=== PATIENT | female | born 1995 | race Caucasian/White ===

== ENCOUNTER → 2018-09-04 | Outpatient (CLI) | payer BC ==
--- NOTE | 2018-09-07 22:00 | MR ---
EXAMINATION TYPE: MR abdomen wo/w con DATE OF EXAM: 09/04/2018 COMPARISON: Outside CT 08/04/2018 HISTORY: 23-year-old female RUQ pain Technique: Multiplanar, multisequence images of the abdomen were obtained before and after administra tion of 6 mL intravenous Gadavist gadolinium contrast. FINDINGS: The heart is normal size without pericardial effusion. There is no pleural effusion. Liver is mildly enlarged at 18.0 cm. Opposed phase T1-weighted images show no evidence for hepatic st eatosis. Within the right liver lobe, there is a round 1.4 cm lesion that shows bright T2 and dark T1 signal. This shows small areas of internal nodular enhancement with enhancement that gradually enlarges on la ter phases of postcontrast sequences. Incomplete filling is demonstrated. No additional focal liver l esion seen. Portal venous system is patent. No biliary ductal dilatation. Gallbladder, adrenal glands, kidneys, spleen, and pancreas appear within normal limits. No upper abdominal lymphadenopathy, ascites fluid, or gross bowel abnormality. Moderate stool burden is demonstrated. IMPRESSION: 1. 1.4 cm right liver lobe lesion shows internal nodular enhancement. The enhancement enlarges on lat er phases of imaging but fill in is incomplete. A partially sclerosed hemangioma is suggested. As the finding is well seen on the outside 05/24/2018 ultrasound, precautionary 6-12 month follow-up ultrasou nd can be performed to demonstrate stability. 2. Otherwise, no specific abnormality of the abdomen is identified.
== END | disposition home or self-care (01) ==
LOC: RADMRIMAIN 08:38
PROVIDERS: ATTEND Physician Assistant
DX: K76.89 Other specified diseases of liver (principal)
CPT/HCPCS: 74183; A9585

== ENCOUNTER 2018-10-23 06:52 | Day surgery (SDC) | payer BC ==
[2018-10-20 15:51] VITALS: BMI 22.8
[~2018-10-23 06:52] MED LIST: DEXAMETHASONE SOD PHOSPHATE 10 MG/ML 1 ML VIAL IV ONE; HEPARIN SODIUM,PORCINE 5,000 UNIT/ML 1 ML VIAL SQ ONE; HYDROmorphone 0.5 MG/0.5 ML SYRINGE IVP PRN; LIDOCAINE 1% 20 ML VIAL (10MG/ML) FOR IV START INTRADERMA PRN; MIDAZOLAM 2 MG/2 ML VIAL IV PRN; ONDANSETRON 4 MG/2 ML VIAL IVP ONE; SCOPOLAMINE 1.5MG/72HR PATCH TRANSDERM ONE
[2018-10-23] MEDS: LACTATED RINGERS 1,000 ML IV SCH ×2 (07:27→08:02)
[2018-10-23] MEDS ORDERED: SUCCINYLCHOLINE CHLORIDE 100 MG/5 ML SYR IV ONE (07:58)
[2018-10-23] MEDS ORDERED: diphenhydrAMINE 50 MG/ML 1 ML VIAL ONE (07:58)
[2018-10-23] MEDS ORDERED: NEOSTIGMINE 1 MG/ML 10 ML VIAL ONE (07:58)
[2018-10-23] MEDS ORDERED: PROPOFOL 10 MG/ML 20 ML VIAL IV ONE (07:58)
[2018-10-23] MEDS ORDERED: fentaNYL (PF) 50 MCG/ML 2 ML AMP ONE (07:58)
[2018-10-23] MEDS ORDERED: GLYCOPYRROLATE 0.2 MG/ML 2 ML VIAL ONE (07:58)
[2018-10-23] MEDS ORDERED: LIDOCAINE 1% INJ 10MG/ML (20 ML MDV) ONE (07:58)
[2018-10-23] MEDS ORDERED: MIDAZOLAM 2 MG/2 ML VIAL ONE (07:58)
[2018-10-23] MEDS ORDERED: LACTATED RINGERS 1,000 ML IV ONE (08:16)
[2018-10-23] MEDS: ceFAZolin IN SWFI 2 GM/20 ML SYRINGE IVP ONE ×2 (08:16→08:21)
[2018-10-23] MEDS ORDERED: BUPIVACAIN-EPI 0.25%-1:200,000 30 ML VIAL IJ ONE ×2 (08:24)
[2018-10-23 09:00] VITALS: TEMP 97.9
--- NOTE | 2018-10-23 09:00 | P.GSHP ---
History of Present Illness H&P Date: 10/23/18 Chief Complaint: Right upper quadrant pain This is a 23-year-old female with complaints of right quadrant pain. Her recent HIDA scan is consistent with biliary dyskinesia and chronic cholecystitis. She presents today for laparoscopic cholecystectomy. Past Medical History Past Medical History: GERD/Reflux Additional Past Medical History / Comment(s): occasional constipation, blood in stool & abd pain. History of Any Multi-Drug Resistant Organisms: None Reported Past Surgical History: No Surgical Hx Reported Additional Past Anesthesia/Blood Transfusion Reaction / Comment(s): NO ANESTHESIA HX Past Psychological History: Anxiety Smoking Status: Never smoker Past Alcohol Use History: Rare Past Drug Use History: None Reported - Past Family History Mother Family Medical History: No Reported History Medications and Allergies Home Medications Medication Instructions Recorded Confirmed Type No Known Home Medications 10/30/15 10/23/18 History Allergies Allergy/AdvReac Type Severity Reaction Status Date / Time No Known Allergies Allergy Verified 10/23/18 07:10 Surgical - Exam Vital Signs Temp Pulse Resp BP Pulse Ox 99.1 F 87 16 118/72 99 10/23/18 07:16 10/23/18 07:16 10/23/18 07:16 10/23/18 07:16 10/23/18 07:16 - General well developed, well nourished, no distress - Eyes PERRL - ENT normal pinna - Neck no masses - Respiratory normal expansion - Cardiovascular Rhythm: regular - Abdomen Abdomen: soft, non tender Assessment and Plan Assessment: Chronic cholecystitis Biliary dyskinesia. We'll perform laparoscopic cholecystectomy
--- NOTE | 2018-10-23 09:23 | P.OP ---
Date of Procedure: 10/23/18 Preoperative Diagnosis: Cholecystitis Postoperative Diagnosis: Cholecystitis Procedure(s) Performed: Laparoscopic cholecystectomy Anesthesia: CALE Surgeon: Keith Rosales Pathology: other (Gallbladder) Condition: stable Disposition: PACU Description of Procedure: The patient was placed on the operating table. The patient received a general endotracheal tube anesthesia. The patients abdomen was prepped and draped in the usual sterile fashion. Through an infraumbilical stab incision, the fascia of the anterior abdominal wall was grasped with a pair of Kochers and then the Veress needle was placed in the peritoneal cavity. Position of the Veress needle was confirmed with positive drop test. The abdomen was then insufflated. After adequate insufflation, the 10 mm trocar was placed in the peritoneal cavity. Following this the laparoscope was placed in the peritoneal cavity. The patient was placed in the head-up, right side up position and then a 5 mm trocar was placed in the right lateral and right subcostal position under direct visualization. A 8 mm trocar was placed in the epigastric position. The gallbladder was grasped in the fundus and infundibulum. Traction on the gallbladder was placed in the lateral and the cephalad positions. The triangle of Calot was visualized.. The cystic duct was bluntly dissected until the union of the cystic duct and common bile duct was seen. A critical view of safety was achieved. The cystic duct was then divided and sealed with the Harmonic scissors. A PDS Endoloop was then placed throughout the cystic duct stump. The cystic artery divided and sealed with the Harmonic scissors. The gallbladder was then removed from the liver bed using Harmonic scissors. The gallbladder was then extracted through the epigastric port site. Operative field was checked for any bleeding spots and Harmonic scissors was used to coagulate the liver bed. The abdomen was irrigated. The trocars were removed. The skin was closed using interrupted 3-0 Vicryl suture. Dermabond dressing were applied. The patient tolerated the procedure well.
[2018-10-23 09:37] VITALS: RESP 16
[2018-10-23] MEDS ORDERED: HYDROcodone/APAP 5-325MG 1 EACH TAB PO ONE (09:48)
[2018-10-23 10:10] VITALS: BP 104/68; PULSE 74
== END 2018-10-23 10:24 | disposition home or self-care (01) ==
LOC: OR 06:52
PROVIDERS: ATTEND Surgery
DX: K81.1 Chronic cholecystitis (principal); K21.9 Gastro-esophageal reflux disease without esophagitis; K59.00 Constipation, unspecified
CPT/HCPCS: 47562; 81025; 88304; 84703; J2250; J1200; J1644; J1100; J2710; J2405; J2001; J3010; J0330; J2704; J0690